=== PATIENT | male | born 1960 | race Caucasian/White ===

== ENCOUNTER 2020-06-22 23:50 | Emergency (ER) | payer MEDICARE ==
[~2020-06-22] VITALS: Ht 170.2 cm; Wt 57.6 kg
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
[2020-06-23] MEDS ORDERED: XANAX1 MG PO (00:07)
[2020-06-23] MEDS ORDERED: FLOMAX0.4 MG PO (00:08)
[2020-06-23] MEDS ORDERED: BACLOFEN 10MG T10 MG PO (00:08)
[2020-06-23] MEDS ORDERED: NORCO 10-325 T1 EACH PO (00:08)
[2020-06-23] MEDS ORDERED: NEURONTIN100 MG PO (00:09)
[2020-06-23] MEDS ORDERED: DILTIAZEM ER180 M2 PO (00:09)
[2020-06-23] MEDS ORDERED: LIPITOR 20 MG T20 M1 PO (00:09)
[2020-06-23 00:17] LABS: HEMATOCRIT 36.3 % (42.0-52.0); HEMOGLOBIN 11.4 gm/dL (14.0-18.0); MCH 26.3 pg (26.0-34.0); MCHC 31.3 g/dL (28.0-37.0); MCV 83.9 fL (80.0-100.0); MPV 8.8 fl. (7.2-11.1); NUCLEATED RBCS 0 /100WBC; PLATELET COUNT* 504 thou/uL (150-400); RBC 4.33 mil/uL (4.50-6.00); RDW-CV 17.3 % (10.5-14.5); WBC 20.3 thou/uL (4.0-11.0)
[2020-06-23 00:40] LABS: CREATININE 0.9 mg/dL (0.6-1.3); INR 1.1; PROTIME 11.2 Seconds (9.20-11.50)
[2020-06-23 00:51] LABS: ALBUMIN 1.9 g/dL (3.4-5.0); MAGNESIUM 2.3 mg/dL (1.8-2.4); TOTAL BILIRUBIN 0.6 mg/dL (<0.1-1.0); TOTAL PROTEIN 6.9 g/dL (6.4-8.2)
[2020-06-23 01:22] LABS: ABSOLUTE LYMPHOCYTES 1.2 thou/uL (0.8-5.3); ABSOLUTE NEUTROPHILS 18.1 thou/uL (1.6-8.1)
[2020-06-23 01:23] LABS: PLATELET ESTIMATE INCREASED
[2020-06-23 01:24] LABS: ANISOCYTOSIS 1+; POLYCHROMASIA 1+
[2020-06-23 01:56] LABS: INFLUENZA A ANTIGEN Negative (Negative); INFLUENZA B ANTIGEN Negative (Negative)
[2020-06-23 01:56] LABS: URINE BILIRUBIN NEGATIVE (Negative); URINE BLOOD 2+ (Negative); URINE CLARITY CLEAR; URINE COLOR YELLOW; URINE GLUCOSE-RANDOM NEGATIVE (Negative); URINE KETONES TRACE (Negative); URINE LEUKOCYTES-REFLEX NEGATIVE (Negative); URINE NITRITE-REFLEX NEGATIVE (Negative); URINE PROTEIN 2+ (Negative); URINE UROBILINOGEN 0.2 E.U./dl (0.2-1.0)
[2020-06-23 03:13] LABS: CASTS None Seen /LPF (None Seen); SQUAMOUS 0-3 Few /LPF (0-3); URINE RBC 0-2 Rare /HPF (0-2); URINE WBC-REFLEX 0-5 Rare /HPF (0-5)
[2020-06-23 03:14] LABS: BACTERIA-REFLEX 1-9 Few /HPF (None Seen); CRYSTALS None Seen /LPF (None Seen)
[2020-06-23 08:25] VITALS: BP 149/76
--- NOTE | 2020-06-23 14:29 | EKG ---
[place] [address] ELECTROCARDIOGRAM REPORT Name: GARETT ARGUETA Room: [facility].#: [id number] Admission: 06/22/20 Attend Phys: Discharge: 06/23/20 Date of : 56 Date of Service: 06/23/20 0000 Report #: [id number] THIS REPORT FOR: //name// [facility] ED Test Date: 2020-06-23 Test Time: 00:00:28 Pat Name: GARETT ARGUETA Department: Room: Gender: Grounds Maintenance Supervisor: [place] [address] : 1960 Requested By: Blossom Lind Order Number: [id number] MD: Dc Ridley Measurements Intervals [place] Rate: 107 P: -15 [place]: 130 QRS: -26 QRSD: 87 T: 18 QT: 333 QTc: 445 Interpretive Statements Sinus tachycardia Probable left atrial enlargement Probable left ventricular hypertrophy Inferior infarct, old possible Artifact in lead(s) II,aVR,aVF,V1,V2,V3,V4,V5,V6 No previous ECG available for comparison Electronically Signed On 06-23-2020 14:29:35 [employer]AS UTILITY WORK[employer] by Dc Ridley [email or web address] <ELECTRONICALLY SIGNED> By: Dc Ridley MD, [facility] 06/23/20 1429 0000 0000 Dc Ridley MD, [facility] /EPI
== END 2020-06-23 08:25 | disposition short-term general hospital (02) ==
LOC: M.ERS 23:50
PROVIDERS: Emergency Medicine
DX: C79.9 Secondary malignant neoplasm of unspecified site (principal); Z20.828 Contact with and (suspected) exposure to other viral communicable diseases; Z79.899 Other long term (current) drug therapy